=== PATIENT | female | born 1970 | race American Indian/Alaskan Native ===

== ENCOUNTER 2017-01-01 11:02 | Emergency (ER) | payer SELFPAY ==
[2017-01-01 11:42] LABS: Basophils % (Auto) 0.8 % (0.0-1.8); Hematocrit 34.7 % (30.3-42.9); Hemoglobin 10.9 gm/dl (10.1-14.3); Mean Corpuscular HGB Conc 32 % (30-34); Mean Corpuscular Hemoglobin 27 pg (28-32); Mean Corpuscular Volume 85 fl (79-97); Platelet Count 311 K/mm3 (140-440); Red Blood Count 4.07 M/mm3 (3.65-5.03); Red Cell Distribution Width 17.3 % (13.2-15.2); White Blood Count 4.4 K/mm3 (4.5-11.0)
--- NOTE | 2017-01-01 11:45 | XRay Report ---
Chest 2 views History upper respiratory infection. Findings: Normal ovary is silhouette trachea is midline. No consolidation, pneumothorax or pleural effusion. Impression: No acute cardiopulmonary findings.
[2017-01-01] MEDS ORDERED: CATAPRES PO ONE (11:48)
[2017-01-01] MEDS ORDERED: CATAPRES ONE (11:50)
[2017-01-01 11:56] LABS: Anion Gap 16 mmol/L; BUN/Creatinine Ratio 11.25; Blood Urea Nitrogen 9 mg/dL (7-17); Carbon Dioxide 27 mmol/L (22-30); Chloride 100.6 mmol/L (98-107); Glucose 88 mg/dL (65-100); Potassium 3.8 mmol/L (3.6-5.0); Sodium 140 mmol/L (137-145)
--- NOTE | 2017-01-01 12:53 | Emergency Department Report ---
ED General Adult HPI - General Chief complaint: Upper Respiratory Infection Stated complaint: COUGH,CHEST PAIN,SOB Time Seen by Provider: 01/01/17 11:50 Source: patient Mode of arrival: Ambulatory Limitations: No Limitations - History of Present Illness Initial comments: PATIENT STATED THAT SHE HAS THIS PROBLEM SINCE JUNE OF THIS YEAR. SYMPTOMS INCLUDE THROUGHT IRRITATION ,SHE FEEL HER NECK GLANDS IS GETTING BIGGER. -: Gradual, month(s) Location: neck Severity scale (0 -10): 4 Quality: dull Consistency: constant Associated Symptoms: chest pain, cough, nausea/vomiting - Related Data Home Medications Medication Instructions Recorded Confirmed Last Taken Losartan [Cozaar] 20 mg PO QDAY 01/10/14 01/10/14 01/10/14 1 Previous Rx's Medication Instructions Recorded Last Taken Type Cyclobenzaprine [Flexeril 10mg] 10 mg PO TID PRN #30 tablet 01/10/14 Unknown Rx HYDROcodone/APAP 7.5-325 [[place] 1 each PO Q6HR PRN #25 tablet 01/10/14 Unknown Rx 7.5/325 mg] Ibuprofen [Motrin] 600 mg PO Q8H PRN #60 tablet 01/10/14 Unknown Rx Cetirizine HCl [ZyrTEC] 10 mg PO DAILY #30 tab.chew 01/01/17 Unknown Rx amLODIPine [Norvasc] 5 mg PO DAILY #30 tab 01/01/17 Unknown Rx Allergies Allergy/AdvReac Type Severity Reaction Status Date / Time No Known Allergies Allergy Verified 01/01/17 11:55 ED Review of Systems ROS: Stated complaint: COUGH,CHEST PAIN,SOB Other details as noted in HPI Comment: All other systems reviewed and negative Constitutional: denies: chills, fever Respiratory: cough Cardiovascular: chest pain. denies: palpitations Endocrine: excessive sweating, intolerance to heat. denies: flushing Gastrointestinal: nausea, vomiting Neurological: denies: headache, paresthesias ED Past Medical Hx - Past Medical History Hx Hypertension: Yes (CURRENTLY NOT TAKING MEDS) Hx Arthritis: Yes - Surgical History Additional Surgical History: TUBAL LIGATION - Social History Smoking Status: Never Smoker Substance Use Type: Alcohol - Medications Home Medications: Home Medications Medication Instructions Recorded Confirmed Last Taken Type Cyclobenzaprine [Flexeril 10mg] 10 mg PO TID PRN #30 tablet 01/10/14 Unknown Rx HYDROcodone/APAP 7.5-325 [[place] 1 each PO Q6HR PRN #25 tablet 01/10/14 Unknown Rx 7.5/325 mg] Ibuprofen [Motrin] 600 mg PO Q8H PRN #60 tablet 01/10/14 Unknown Rx Losartan [Cozaar] 20 mg PO QDAY 01/10/14 01/10/14 01/10/14 History 1 Cetirizine HCl [ZyrTEC] 10 mg PO DAILY #30 tab.chew 01/01/17 Unknown Rx amLODIPine [Norvasc] 5 mg PO DAILY #30 tab 01/01/17 Unknown Rx ED Physical Exam - General Limitations: No Limitations General appearance: alert, in no apparent distress - Eye Eye exam: Present: other (EXOPHTHALMOS) - ENT ENT exam: Present: normal exam - Neck Neck exam: Present: thyromegaly - Respiratory Respiratory exam: Present: normal lung sounds bilaterally - Cardiovascular Cardiovascular Exam: Present: regular rate, normal heart sounds - GI/Abdominal GI/Abdominal exam: Present: soft. Absent: distended, tenderness - Extremities Exam Extremities exam: Present: normal inspection - Back Exam Back exam: Absent: normal inspection - Neurological Exam Neurological exam: Present: alert, oriented X3, CN II-XII intact - Psychiatric Psychiatric exam: Present: normal affect, normal mood - Skin Skin exam: Present: warm, dry ED Course Vital Signs 01/01/17 01/01/17 01/01/17 11:13 11:34 11:45 Temperature 98.7 F Pulse Rate 95 H 75 Respiratory 19 18 Rate Blood Pressure 182/106 Blood Pressure 185/126 [right] O2 Sat by Pulse 100 99 100 Oximetry 01/01/17 01/01/17 01/01/17 11:50 12:00 13:17 Temperature Pulse Rate 75 Respiratory Rate Blood Pressure 185/126 178/119 154/96 Blood Pressure [right] O2 Sat by Pulse 99 Oximetry - Reevaluation(s) Reevaluation #1: 01/01/17 14:30 PATIENT STATED THAT SHE FEEL MUCH BETTER ED Medical Decision Making - Lab Data Result diagrams: 01/01/17 11:27 01/01/17 11:27 Critical care attestation.: If time is entered above; I have spent that time in minutes in the direct care of this critically ill patient, excluding procedure time. ED Disposition Clinical Impression: Chest pain, atypical, Hypertension Disposition: DC-01 TO HOME OR SELFCARE Is pt being admited?: No Does the pt Need Aspirin: No Condition: Stable Instructions: Chest Pain (ED), Hypertension (ED) Prescriptions: amLODIPine [Norvasc] 5 mg PO DAILY #30 tab Cetirizine HCl [ZyrTEC] 10 mg PO DAILY #30 tab.chew
[2017-01-01 14:40] VITALS: BP 150/89
== END 2017-01-01 14:40 | disposition home or self-care (01) ==
LOC: ED 11:02
DX: R07.89 Other chest pain (principal); I10 Essential (primary) hypertension; M19.90 Unspecified osteoarthritis, unspecified site
CPT/HCPCS: 36415; 71020; 80048; 84439; 84443; 85025

== ENCOUNTER 2020-06-09 10:38 | Emergency (ER) | payer SELFPAY | END 2020-06-09 14:15 | disposition left against medical advice (07) | LOC: ED 10:38 | DX: I10 Essential (primary) hypertension (principal); Z53.21 Procedure and treatment not carried out due to patient leaving prior to being seen by health care provider ==

== ENCOUNTER 2021-07-26 09:43 | Emergency (ER) | payer SELFPAY ==
[2021-07-26] MEDS ORDERED: CYCLOBENZAPRINE 10 MG TAB PO ONE (11:12)
[2021-07-26] MEDS ORDERED: traMADol 50 MG TAB PO ONE (11:12)
[2021-07-26] MEDS ORDERED: dexAMETHasone 4 MG/ML VIAL IM ONE (11:12)
--- NOTE | 2021-07-26 11:17 | Emergency Department Report ---
ED Back Pain/Injury HPI - General Chief Complaint: Back Pain/Injury Stated Complaint: LOWER BACK/LEG PAIN Time Seen by Provider: 07/26/21 11:08 Source: patient Limitations: No Limitations - History of Present Illness Initial Comments: 51 yo AA female comes to er co right low back pain radiating to r buttocks and r thigh. She has had this in the past. no fall/trauma. no dysuria. no fever/chills. no abd pain. no n/v/d. Pt ambulatory non ill appearing no s/s caud[place] equina pt has hx htn and is out of meds she is requesting refill no cp no sob MD Complaint: other -: Gradual, days(s) Similar Symptoms Previously: Yes Place: home Severity scale (0 -10): 5 Quality: burning Consistency: intermittent Improves With: immobilization Worsens With: movement Associated Symptoms: denies other symptoms. denies: confusion, weakness, chest pain, numbness, difficulty walking, cough, difficulty urinating, diaphoresis, incontinence, fever/chills, constipation, headaches, abdominal pain, loss of appetite, malaise, nausea/vomiting, rash, seizure, shortness of breath, syncope - Related Data Previous Rx's Medication Instructions Recorded Last Taken Type Cyclobenzaprine [Flexeril] 10 mg PO TID PRN #10 tablet 07/26/21 Unknown Rx Ibuprofen [Motrin] 800 mg PO Q8HR PRN #30 tablet 07/26/21 Unknown Rx amLODIPine [Norvasc] 5 mg PO DAILY #30 tab 07/26/21 Unknown Rx hydroCHLOROthiazide [HCTZ] 25 mg PO QDAY #30 tablet 07/26/21 Unknown Rx predniSONE [Deltasone] 20 mg PO DAILY #5 tablet 07/26/21 Unknown Rx Allergies Allergy/AdvReac Type Severity Reaction Status Date / Time No Known Allergies Allergy Verified 01/01/17 11:55 ED Review of Systems ROS: Stated complaint: LOWER BACK/LEG PAIN Other details as noted in HPI Comment: All other systems reviewed and negative ED Past Medical Hx - Past Medical History Previous Medical History?: Yes Hx Hypertension: Yes Hx Arthritis: Yes Additional medical history: chronic rle swelling- since child - Surgical History Past Surgical History?: Yes Additional Surgical History: TUBAL LIGATION - Family History Family history: no significant - Social History Smoking Status: Never Smoker - Medications Home Medications: Home Medications Medication Instructions Recorded Confirmed Last Taken Type Cyclobenzaprine [Flexeril] 10 mg PO TID PRN #10 tablet 07/26/21 Unknown Rx Ibuprofen [Motrin] 800 mg PO Q8HR PRN #30 tablet 07/26/21 Unknown Rx amLODIPine [Norvasc] 5 mg PO DAILY #30 tab 07/26/21 Unknown Rx hydroCHLOROthiazide [HCTZ] 25 mg PO QDAY #30 tablet 07/26/21 Unknown Rx predniSONE [Deltasone] 20 mg PO DAILY #5 tablet 07/26/21 Unknown Rx ED Physical Exam - General Limitations: No Limitations General appearance: alert, in no apparent distress - Head Head exam: Present: atraumatic, normocephalic - Eye Eye exam: Present: normal appearance - ENT ENT exam: Present: mucous membranes moist - Neck Neck exam: Present: normal inspection - Respiratory Respiratory exam: Present: normal lung sounds bilaterally. Absent: respiratory distress - Cardiovascular Cardiovascular Exam: Present: regular rate, normal rhythm. Absent: systolic murmur, diastolic murmur, rubs, gallop - GI/Abdominal GI/Abdominal exam: Present: soft, normal bowel sounds - Extremities Exam Extremities exam: Present: normal inspection - Back Exam Back exam: Present: normal inspection - Neurological Exam Neurological exam: Present: alert, oriented X3 - Psychiatric Psychiatric exam: Present: normal affect, normal mood - Skin Skin exam: Present: warm, dry, intact, normal color. Absent: rash ED Course Vital Signs 07/26/21 07/26/21 10:55 11:46 Temperature 97.8 F 98.8 F Pulse Rate 80 80 Respiratory 18 18 Rate Blood Pressure 179/78 Blood Pressure 170/98 [Left] O2 Sat by Pulse 99 100 Oximetry ED Medical Decision Making - Medical Decision Making Vital Signs 07/26/21 07/26/21 10:55 11:46 Temperature 97.8 F 98.8 F Pulse Rate 80 80 Respiratory 18 18 Rate Blood Pressure 179/78 Blood Pressure 170/98 [Left] O2 Sat by Pulse 99 100 Oximetry pos right straight leg raise no fall trauma no spine tenderness medicated for sciatica in ER a/c htn request med refill norvasc / hctz no cp no sob ambulatory neuro intact taking po dc home with dc plan of care including diet, activity, meds and follow up. Pt verbalizes understanding of plan of care. - Differential Diagnosis sciatica; a/c htn; med non adh Critical care attestation.: If time is entered above; I have spent that time in minutes in the direct care of this critically ill patient, excluding procedure time. ED Disposition Clinical Impression: Nonadherence to medication Sciatica Qualifiers: Laterality: right Qualified Code(s): M54.31 - Sciatica, right side HTN (hypertension) Qualifiers: Hypertension type: unspecified Qualified Code(s): I10 - Essential (primary) hypertension Disposition: HOME / SELF CARE / HOMELESS Is pt being admited?: No Does the pt Need Aspirin: No Condition: Stable Instructions: Radicular Pain, Hypertension (ED) Additional Instructions: meds as ordered today bp meds as ordered warm compresses will help back stretching will help sciatic pain follow up with pcp in 1 week for recheck referral below Prescriptions: amLODIPine [Norvasc] 5 mg PO DAILY #30 tab predniSONE [Deltasone] 20 mg PO DAILY #5 tablet Cyclobenzaprine [Flexeril] 10 mg PO TID PRN #10 tablet PRN Reason: Muscle Spasm hydroCHLOROthiazide [HCTZ] 25 mg PO QDAY #30 tablet Ibuprofen [Motrin] 800 mg PO Q8HR PRN #30 tablet PRN Reason: Pain, Moderate (4-6) Referrals: KIKI CARLISLE MD [Staff Physician] - 3-5 Days Time of Disposition: 11:16
[2021-07-26 11:52] VITALS: BP 170/98
== END 2021-07-26 12:09 | disposition home or self-care (01) ==
LOC: ED 09:43
DX: M54.31 Sciatica, right side (principal); Z91.19 Patient's noncompliance with other medical treatment and regimen; I10 Essential (primary) hypertension
CPT/HCPCS: 96372; 99282; J1100

== ENCOUNTER 2021-08-02 10:52 | Emergency (ER) | payer SELFPAY ==
[2021-08-02] MEDS ORDERED: ACETAMINOPHEN 500 MG TAB PO ONE (13:09)
[2021-08-02] MEDS ORDERED: KETOROLAC 30 MG/1 ML INJ IM ONE (13:09)
--- NOTE | 2021-08-02 13:15 | Emergency Department Report ---
ED Back Pain/Injury HPI - General Chief Complaint: Back Pain/Injury Stated Complaint: LOWER BACK PAIN Time Seen by Provider: 08/02/21 12:58 Source: patient Limitations: No Limitations - History of Present Illness Initial Comments: Chief complaint: Back pain HPI: This is a 51-year-old female with history of hypertension who presents with lower back pain. Gradual onset 2 weeks ago. She finished course of prednisone given to her last week at this emergency department. Pain is 10 out of 10 in severity. Radiates from lower back to hip to leg. She denies leg weakness. She denies bowel or bladder incontinence. She denies trauma. She drove private auto to the emergency department. Pain is worse with walking. Relieved with bending over. MD Complaint: back pain -: week(s) (2 weeks) Severity: severe Severity scale (0 -10): 10 Consistency: constant Improves With: other (Bending over) Worsens With: walking Context: other (No trauma) Associated Symptoms: denies other symptoms Treatments Prior to Arrival: other (Patient was prescribed cyclobenzaprine, ibuprofen, prednisone.) - Related Data Previous Rx's Medication Instructions Recorded Last Taken Type Cyclobenzaprine [Flexeril] 10 mg PO TID PRN #10 tablet 07/26/21 Unknown Rx Ibuprofen [Motrin] 800 mg PO Q8HR PRN #30 tablet 07/26/21 Unknown Rx amLODIPine [Norvasc] 5 mg PO DAILY #30 tab 07/26/21 Unknown Rx hydroCHLOROthiazide [HCTZ] 25 mg PO QDAY #30 tablet 07/26/21 Unknown Rx predniSONE [Deltasone] 20 mg PO DAILY #5 tablet 07/26/21 Unknown Rx Cyclobenzaprine [Flexeril 10 MG 10 mg PO TID PRN #30 08/02/21 Unknown Rx TAB] oxyCODONE /ACETAMINOPHEN [Percocet 1 tab PO Q6HR PRN #15 tablet 08/02/21 Unknown Rx 5/325] Allergies Allergy/AdvReac Type Severity Reaction Status Date / Time No Known Allergies Allergy Verified 01/01/17 11:55 ED Review of Systems ROS: Stated complaint: LOWER BACK PAIN Other details as noted in HPI Comment: All other systems reviewed and negative Constitutional: denies: fever, malaise Respiratory: denies: cough, shortness of breath Cardiovascular: denies: chest pain Gastrointestinal: denies: abdominal pain, nausea, vomiting Musculoskeletal: back pain ED Past Medical Hx - Past Medical History Previous Medical History?: Yes Hx Hypertension: Yes Hx Arthritis: Yes Additional medical history: chronic rle swelling- since child - Surgical History Past Surgical History?: Yes Additional Surgical History: TUBAL LIGATION - Social History Smoking Status: Never Smoker Substance Use Type: None - Medications Home Medications: Home Medications Medication Instructions Recorded Confirmed Last Taken Type Cyclobenzaprine [Flexeril] 10 mg PO TID PRN #10 tablet 07/26/21 Unknown Rx Ibuprofen [Motrin] 800 mg PO Q8HR PRN #30 tablet 07/26/21 Unknown Rx amLODIPine [Norvasc] 5 mg PO DAILY #30 tab 07/26/21 Unknown Rx hydroCHLOROthiazide [HCTZ] 25 mg PO QDAY #30 tablet 07/26/21 Unknown Rx predniSONE [Deltasone] 20 mg PO DAILY #5 tablet 07/26/21 Unknown Rx Cyclobenzaprine [Flexeril 10 MG 10 mg PO TID PRN #30 08/02/21 Unknown Rx TAB] oxyCODONE /ACETAMINOPHEN [Percocet 1 tab PO Q6HR PRN #15 tablet 08/02/21 Unknown Rx 5/325] ED Physical Exam - General Limitations: No Limitations General appearance: alert, in no apparent distress - Head Head exam: Present: atraumatic, normocephalic - Eye Eye exam: Present: normal appearance - ENT ENT exam: Present: mucous membranes moist - Neck Neck exam: Present: normal inspection, full ROM - Respiratory Respiratory exam: Present: normal lung sounds bilaterally. Absent: respiratory distress, wheezes, rales, rhonchi - Cardiovascular Cardiovascular Exam: Present: regular rate, normal rhythm, normal heart sounds. Absent: systolic murmur, diastolic murmur, rubs, gallop - GI/Abdominal GI/Abdominal exam: Present: soft, normal bowel sounds. Absent: distended, tenderness, guarding, rebound - Extremities Exam Extremities exam: Present: other (Right lower extremity swelling) - Back Exam Back exam: Present: normal inspection, full ROM, tenderness. Absent: CVA tenderness (R), CVA tenderness (L), paraspinal tenderness, vertebral tenderness, rash noted - Neurological Exam Neurological exam: Present: alert, oriented X3 - Psychiatric Psychiatric exam: Present: normal affect, normal mood - Skin Skin exam: Present: warm, dry, intact, normal color. Absent: rash ED Course Vital Signs 08/02/21 12:47 Temperature 98.2 F Pulse Rate 97 H Respiratory 16 Rate Blood Pressure 133/85 [Left] O2 Sat by Pulse 97 Oximetry ED Medical Decision Making - Medical Decision Making Clinical impression: Lumbar degenerative disc disease, sciatica. No red flags to suggest emergent conditions such as fever trauma IV drug use neurological deficit. Prescribed Percocet and Flexeril. Referred to coding compliance specialist. Referred to internal medicine physician. Recommended treatment by chiropractor for immediate relief. Critical care attestation.: If time is entered above; I have spent that time in minutes in the direct care of this critically ill patient, excluding procedure time. ED Disposition Clinical Impression: Lumbar degenerative disc disease, Sciatica Disposition: 01 HOME / SELF CARE / HOMELESS Is pt being admited?: No Does the pt Need Aspirin: No Condition: Stable Instructions: Sciatica, [id number], Sciatica Prescriptions: Cyclobenzaprine [Flexeril 10 MG TAB] 10 mg PO TID PRN #30 PRN Reason: Muscle Spasm oxyCODONE /ACETAMINOPHEN [Percocet 5/325] 1 tab PO Q6HR PRN #15 tablet PRN Reason: Pain Referrals: MAGGIE REECE II, MD [Staff Physician] - GIANNI KIKI CARLISLE MD [Staff Physician] - GIANNI Forms: Work/School Release Form(ED)
[2021-08-02 13:34] VITALS: BP 136/84
== END 2021-08-02 13:40 | disposition home or self-care (01) ==
LOC: ED 10:52
DX: M51.36 Other intervertebral disc degeneration, lumbar region (principal); M54.30 Sciatica, unspecified side; I10 Essential (primary) hypertension
CPT/HCPCS: 96372; 99282; J1885